=== PATIENT | male | born 1950 | race Caucasian/White ===

== ENCOUNTER → 2016-12-26 | Outpatient (CLI) | payer BC, MEDICARE, OTHER ==
[~2016-12-26] VITALS: Ht 185.4 cm; Wt 113.4 kg
[~2016-12-26] MED LIST: CATHETER FLUSH 10 ML SYR IV PRN; REGADENOSON 0.4 MG/5 ML SYR (LEXISCAN) IV ONE
[2016-12-26 09:20] VITALS: BP 127/76
[2016-12-26 09:26] VITALS: BP 127/81
== END ==
LOC: CARD 08:05
PROVIDERS: ATTEND Physician Assistant Medical
DX: I25.10 Atherosclerotic heart disease of native coronary artery without angina pectoris (principal); E78.5 Hyperlipidemia, unspecified
CPT/HCPCS: 78452; 93017

== ENCOUNTER 2018-03-20 09:52 | Outpatient (CLI) | payer OTHER ==
[~2018-03-20] VITALS: Ht 185.4 cm; Wt 122.5 kg
[2018-03-20 10:11] VITALS: BP 123/75
[2018-03-20] MEDS ORDERED: EZET10TA5 PO (10:15)
[2018-03-20] MEDS ORDERED: VITA-244 PO (10:50)
[2018-03-20] MEDS ORDERED: ASPI-586 PO (10:50)
[2018-03-20] MEDS ORDERED: POTA99TA21 PO (10:50)
[2018-03-20] MEDS ORDERED: COLE1TAB PO (10:50)
[2018-03-20] MEDS ORDERED: MV,M1TAB4 PO (10:50)
[2018-03-20] MEDS ORDERED: FENO145T2 PO (10:50)
[2018-03-20] MEDS ORDERED: OMEP20TA33 PO (10:50)
== END 2018-03-20 10:25 | disposition home or self-care (01) ==
LOC: PREOP 09:52
PROVIDERS: ATTEND Podiatrist Foot & Ankle Surgery
DX: Z01.818 Encounter for other preprocedural examination (principal)
CPT/HCPCS: 87081

== ENCOUNTER 2018-03-29 11:27 | Day surgery (SDC) | payer OTHER ==
[~2018-03-29] VITALS: Ht 185.4 cm; Wt 122.5 kg
[2018-03-29 11:25] VITALS: BP 131/86
[~2018-03-29 11:27] MED LIST changes: +ASPI-586 PO; -CATHETER FLUSH 10 ML SYR IV PRN; +COLE1TAB PO; +EZET10TA5 PO; +FENO145T2 PO; +MV,M1TAB4 PO; +OMEP20TA33 PO; +POTA99TA21 PO; -REGADENOSON 0.4 MG/5 ML SYR (LEXISCAN) IV ONE; +VITA-244 PO
--- OUTSIDE RECORDS SUMMARY | 2018-03-29 11:31 | XMS REPORT | Continuity of Care Document ---
Author Author [facility] Organization [facility] & Address Unknown Phone Unavailable Allergies Active Description Code Type Severity Reaction Onset Reported/Identified Relationship to Patient Clinical Status Yes NO KNOWN DRUG ALLERGIES UNKNOWN NO KNOWN DRUG ALLERG Yes No Known Drug Allergies [id number] Drug Allergy Unknown N/A 12/26/2016 Yes No Known Allergies No Known Allergies Drug Allergy Unknown N/A 2016 Medications There is no data. Problems Date Dx Coded Attending Type Code Diagnosis Diagnosed By 12/27/2016 JENNIFER BLACKWELL Ot E78.5 HYPERLIPIDEMIA, UNSPECIFIED 12/27/2016 JENNIFER BLACKWELL Ot I25.10 ATHSCL HEART DISEASE OF [place] CORONARY 01/19/2017 JENNIFER BLACKWELL Ot E78.5 HYPERLIPIDEMIA, UNSPECIFIED 01/19/2017 JENNIFER BLACKWELL Ot I25.10 ATHSCL HEART DISEASE OF [place] CORONARY 03/18/2018 Diaz Tam V72.63 PRE -PROCEDURAL LABORATORY EXAMINATION 03/18/2018 Diaz Tam Z01.812 ENCOUNTER FOR PREPROCEDURAL LABORATORY EXAMINATION 03/18/2018 Diaz Tam V72.63 PRE -PROCEDURAL LABORATORY EXAMINATION 03/18/2018 Diaz Tam Z01.812 ENCOUNTER FOR PREPROCEDURAL LABORATORY EXAMINATION 03/20/2018 JENNIFER BLACKWELL Ot E78.5 HYPERLIPIDEMIA, UNSPECIFIED 03/20/2018 JENNIFER BLACKWELL Ot I25.10 ATHSCL HEART DISEASE OF [place] CORONARY 03/21/2018 GLENN RAMIREZ DPM Ot Z01.818 ENCOUNTER FOR OTHER PREPROCEDURAL EXAMIN Procedures There is no data. Results Test Result Range PSA Yearly Screen - 05/01/16 09:23 PSA TOTAL 1.5 ng/mL 0.0-4.0 CBC W/DIFF - 01/09/17 12:34 EOSINOPHIL # 0.3 k/cumm 0.1-0.5 EOSINOPHIL % 5 % 2-4 GRANULOCYTE # 3.1 k/cumm 2.0-9.0 GRANULOCYTE % 55 % 50-75 LYMPHOCYTE # 1.8 k/cumm 1.0-4.0 LYMPHOCYTE % 31 % 20-30 MEAN CELL HGB 28.7 pg 27.0-33.0 MEAN CELL HGB CONCENTRATION 32.6 g/dL 32.0-37.0 MEAN CELL VOLUME 87.9 fl 80.0-100.0 MONOCYTE # 0.5 k/cumm 0.1-1.0 MONOCYTE % 9 % 4-6 RED BLOOD CELL 4.78 m/cumm 4.00-6.00 RED CELL DISTRIBUTION WIDTH 15.4 % 11.0-15.6 WHITE BLOOD CELL 5.7 k/cumm 5.0-10.0 HEMOGLOBIN 13.7 gm/dL 14.0-18.0 HEMATOCRIT 42.0 % 40.0-54.0 PLATELET COUNT 178 k/cumm 150-450 PROTHROMBIN TIME WITH INR - 01/09/17 12:34 INTERNATIONAL NORMAL RATIO 1.1 0.9-1.1 PROTHROMBIN TIME 12.2 sec 10.0-12.8 METABOLIC PANEL, BASIC - 01/09/17 12:34 POTASSIUM 3.8 mmol/L 3.5-5.3 EST GFR (MDRD) > 60 mL/min > 59 ANION GAP 8 mmol/L 5-15 EST CrCl (CG) > 60 mL/min > 59 GLUCOSE 85 mg/dL 70-99 CALCIUM 8.8 mg/dL 8.5-10.1 BLOOD UREA NITROGEN 17 mg/dL 7-20 CREATININE 0.9 mg/dL 0.7-1.3 SODIUM 143 mmol/L 135-148 CHLORIDE 110 mmol/L 98-110 CARBON DIOXIDE 25 mmol/L 21-32 LIPID PANEL - 01/09/17 12:34 CHOLESTEROL/HDL RATIO 3.3 < 5.0 LDL CHOLESTEROL 105 mg/dL < 100 VLDL CHOLESTEROL 21 mg/dL < 30 TRIGLYCERIDES 106 mg/dL < 150 CHOLESTEROL 180 mg/dL < 200 HDL CHOLESTEROL 54 mg/dL > 39 Thyroid Stimulating Hormone - 05/25/17 08:30 TSH 1.55 mIU/mL 0.32-5.00 PSA Yearly Screen - 05/25/17 08:30 PSA TOTAL 1.9 ng/mL 0.0-4.0 BMP - 03/18/18 10:15 Anion Gap 14 6-14 BUN 16 mg/dL 5-25 Calcium 9.7 mg/dL 8.3-10.4 Chloride 111 mmol/L 95-114 CO2 21 mEq/L 22-33 Creat 0.84 mg/dL 0.50-1.50 eGFR 91 mL/min/1.73m2 >59 Glucose 94 mg/dL 70-110 Osmo 294 280-295 Potassium 4.4 mmol/L 3.5-5.3 Sodium 142 mmol/L 134-148 Methicillin resistant Staphylococcus aureus (MRSA) screening culture - 10:17 Methicillin resistant Staphylococcus aureus (MRSA) screening culture NEG NRG Encounters ACCT No. Visit Date/Time Discharge Status Pt. Type Provider Facility Loc./Unit Complaint [id number] 01/09/2017 11:43:00 01/09/2017 20:50:00 DIS Outpatient Idris PABON, [facility] [place] [id number] 03/20/2018 09:52:00 03/20/2018 10:52:00 DIS Outpatient GLENN RAMIREZ DPM [facility] PREOP [place] [id number] 12/26/2016 08:05:00 12/26/2016 23:59:59 CLS Outpatient JENNIFER BLACKWELL [facility] CARD CAD,CARDIAC CLEARANCE [id number] 03/29/2018 11:27:00 ACT Outpatient GLENN RAMIREZ DPM [facility] SDC [place] [id number] 03/18/2018 10:12:00 03/18/2018 23:59:00 DIS Outpatient Diaz Tam [id number] 05/25/2017 08:26:00 05/25/2017 23:59:00 DIS Outpatient Lalitha Barrios [id number] 05/01/2016 09:13:00 05/01/2016 23:59:00 DIS Outpatient Diaz Tam [id number] 01/14/2017 15:11:28 ACT Document Registration
[2018-03-29] MEDS ORDERED: LACTATED RINGERS 1,000 ML IV PRN (11:33)
[2018-03-29] MEDS ORDERED: ceFAZolin INJECTION 1,000 MG in NS (IVPB) 50 ML IV ONE (11:45)
[2018-03-29] MEDS ORDERED: MIDAZOLAM 2 MG/2 ML (VERSED) VIAL ONE (11:57)
[2018-03-29] MEDS ORDERED: fentaNYL INJECTION 100 MCG/2 ML AMP ONE (11:57)
[2018-03-29] MEDS ORDERED: ONDANSETRON 4 MG/2 ML (SDV) Z0FRAN ONE (11:57)
[2018-03-29] MEDS ORDERED: proPOfol 200 MG/20 ML (DIPRIVAN) VIAL IV ONE (11:57)
[2018-03-29] MEDS ORDERED: DEXAMETHASONE 10 MG/ML (DECADRON) 1 ML VIAL ONE ×2 (11:57→12:15)
[2018-03-29] MEDS ORDERED: LIDOCAINE PF 2% 5 ML (XYLOCAINE) VIAL ONE (11:57)
[2018-03-29] MEDS ORDERED: BUPIVACAINE 0.5% 30 ML (SENSORCAINE) VIAL ONE (12:15)
[2018-03-29] MEDS ORDERED: LIDOCAINE 1% INJ 20 ML 20 ML VIAL ONE (12:15)
--- NOTE | 2018-03-29 13:01 | Progress Note-Pre Operative ---
Pre-Operative Progress Note H&P Reviewed The H&P was reviewed, patient examined and no changes noted. 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
[2018-03-29] MEDS ORDERED: SEVOFLURANE (ULTANE) 15 ML INHAL SOLN ONE (13:35)
--- NOTE | 2018-03-29 14:00 | Physical Therapy Progress Note ---
Therapy Progress Note PT consulted with spouse. Patient is active PLOF and has established knee scooter and crutches and has been practicing with these assistive devices. Spouse voices she is comfortable with his skill level and declined PT intervention. PT educated spouse to have nursing call PT if she feels differently or concerns arise. No PT indicated. 1 visit KYLEIGH HURT PT Mar 29, 2018 14:00
[2018-03-29] MEDS ORDERED: LACTATED RINGERS 1,000 ML IV SCH (14:09)
--- NOTE | 2018-03-29 14:09 | Progress Note-Post Operative ---
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
[2018-03-29] MEDS ORDERED: ACHD5005 PO (14:12)
[2018-03-29] MEDS ORDERED: CEPH500C PO (14:12)
[2018-03-29] MEDS ORDERED: HYDROcodone/APAP 5 MG/325 MG (LORTAB) TAB PO PRN (14:15)
[2018-03-29 15:05] VITALS: BP 128/78
--- NOTE | 2018-03-29 15:24 | Diagnostic Imaging Report ---
INDICATION: Postop to the right foot. TIME OF EXAMINATION: 02:23 p.m. FINDINGS: Two views of the right foot demonstrate postop changes of the distal third metatarsal. Alignment is normal. There is a single screw within the distal third metatarsal. IMPRESSION: Satisfactory postop changes to the right foot. Dictated by: Dictated on workstation # [id number]
[2018-03-29 15:35] VITALS: BP 134/84
[2018-03-29 16:05] VITALS: BP 138/91
--- NOTE | 2018-03-29 23:34 | OPERATIVE REPORT ---
DATE OF SERVICE: 03/29/2018 SURGEON: Jerica Ramirez DPM PREOPERATIVE DIAGNOSES: 1. Neuroma, second interspace, right foot. 2. Metatarsalgia, right third metatarsal. POSTOPERATIVE DIAGNOSES: 1. Neuroma, second interspace, right foot. 2. Metatarsalgia, right third metatarsal. PROCEDURES: 1. Third metatarsal osteotomy, right foot. 2. Neurectomy right second intermetatarsal space. WOUND CLASS: Clean. ANESTHESIA: General. HEMOSTASIS: Pneumatic thigh tourniquet at 300 mmHg. INDICATIONS: This 67-year-old male presents complaining of painful right forefoot. Conservative therapy has met with unsatisfactory results and the patient is agreeable to surgical intervention after risks and complications were discussed at length. No guarantees were extended to the patient and he is willing to proceed. DESCRIPTION OF PROCEDURE: The patient was brought back to the operating table, placed in secure supine position. Appropriate time out was performed. A general anesthetic was then induced. Pneumatic thigh tourniquet was placed on the right lower extremity over several layers padding. The right foot was then prepped and draped in normal sterile manner. A local infusion of 1:1 mixture of 1% Xylocaine, 0.5% Marcaine was injected into the second intermetatarsal space as well as a third of the right foot utilizing 7 mL in total. A 4 cm longitudinal linear incision was created extending from the second intermetatarsal space mid diaphysis extending distally to the medial aspect of the right third digit overlying the proximal phalanx area. The incision was deepened in the same plane with great care to identify and retract all vital neurovascular structures. All the necessary blood vessels were cauterized as encountered. Blunt dissection was carried out into the intermetatarsal space where the deep transverse intermetatarsal ligament was identified and incised. Below this was a white glistening mass that extended to the plantar aspect of the second and third digits grossly identified to be the proper digital nerves. These areas were incised as distally as possible and the incision was extended proximally and the nerve ending was obliterated as dissection was progressed proximally. No other abnormalities were identified within the second intermetatarsal space. The wound was flushed with copious amounts of normal saline. Attention was then directed to the dorsal aspect of the right third toe where a Z slide lengthening was performed overlying the extensor digitorum longus. The extensor tendon was reflected proximally and the extensor phillips was then excised. A dorsal capsulorrhaphy was then performed to the metatarsophalangeal joint. This exposed the hypertrophic head of the third metatarsal where a Mandy-type osteotomy was performed with the power sagittal saw. The capital fragment was translocated proximally and fixated in its corrected position and a slightly posterior and lateral position to its original orientation. Utilizing a snap-off screw of 12 mm of length, a 2.0 snap-off screw of 12 mm in length, the osteotomy was fixated in its corrected position. Excellent bony apposition and fixation was appreciated at this time. The wound was flushed with copious amounts of normal saline. A rongeur was utilized to reduce the remaining bony eminence to the dorsal aspect of the third metatarsal head area. Excellent range of motion was appreciated at the right third metatarsophalangeal joint without crepitation. The wound was flushed once again and closure was then performed in layers. Deep closure was performed with 3-0 Vicryl, superficial with 4-0 Vicryl, skin closed with 4-0 Prolene in a horizontal mattress type stitch. Postoperative injection consisted of 10 mL of 1:1 mixture of 1% Xylocaine, 0.5% Marcaine injected in a local infusion to the surgical site. Postoperative injection also included 10 mg of dexamethasone to the second intermetatarsal space, right foot. Postoperative dressing consisted of Betadine soaked Adaptic, sterile 4 x 4, sterile Kerlix, all secured with a Coban wrap. The patient tolerated the anesthesia and procedure well, was transported from the operating room to the recovery area with vital signs stable and vascular status intact to all digits of the right foot. The patient is to follow up in my office in 10 days' period of time or sooner if necessary. Job ID: [id number] DocumentID: [id number] Dictated Date: 03/29/2018 14:18:44 Gas Attendant Date: 03/29/2018 23:34:25 Dictated By: JERICA RAMIREZ DPM
== END 2018-03-29 16:15 | disposition home or self-care (01) ==
LOC: SDC 11:27
PROVIDERS: ATTEND Podiatrist Foot & Ankle Surgery
DX: M77.41 Metatarsalgia, right foot (principal); G57.81 Other specified mononeuropathies of right lower limb; I25.10 Atherosclerotic heart disease of native coronary artery without angina pectoris; I10 Essential (primary) hypertension; K21.9 Gastro-esophageal reflux disease without esophagitis; G47.33 Obstructive sleep apnea (adult) (pediatric); Z79.82 Long term (current) use of aspirin; Z79.899 Other long term (current) drug therapy
CPT/HCPCS: 73620; 88304